=== PATIENT | female | born 1955 | race Caucasian/White ===

== ENCOUNTER → 2021-01-08 14:08 | Outpatient (REF) | payer MEDICARE, OTHER, SELFPAY | LOC: ANHLAB 14:08 | PROVIDERS: PCP Family Medicine; Visit Provider Nurse Practitioner | DX: L57.0 Actinic keratosis (principal) | CPT/HCPCS: 88305 ==

== ENCOUNTER 2022-09-03 11:42 | Outpatient (NON) | payer MEDICARE, OTHER, SELFPAY | END 2022-09-03 11:43 | disposition home or self-care (01) | PROVIDERS: PCP Family Medicine; Visit Provider Nurse Practitioner | DX: C44.02 Squamous cell carcinoma of skin of lip (principal) | CPT/HCPCS: 88305 ==

== ENCOUNTER 2022-09-23 07:38 | Outpatient (NON) | payer MEDICARE, OTHER, SELFPAY | END 2022-09-23 07:39 | disposition home or self-care (01) | PROVIDERS: PCP Family Medicine; Visit Provider Nurse Practitioner | DX: C44.320 Squamous cell carcinoma of skin of unspecified parts of face (principal) | CPT/HCPCS: 88305; 88331 ==